=== PATIENT | female | born 1950 | race Caucasian/White ===

== ENCOUNTER 2018-08-13 18:44 | Emergency (ER) | payer OTHER ==
[~2018-08-13] VITALS: Ht 160 cm; Wt 81.7 kg
[~2018-08-13 18:44] MED LIST: ABILIFY15 MG PO; ANAPROX DS550 MG PO; CARAFATE 1 GM TA1 G1 PO; CLEOCIN HCL300 MG PO; DEMADEX20 MG PO; FEOSOL325 M1 PO; LEVOTHYROXIN0.025 MG PO; LIPITOR 20 MG T20 M1 PO; MIRALAX255 GM PO; NORCO 5-325 TA1 EACH PO; PROTONIX40 M1 PO; PROZAC 20 MG20 M1; PROZAC20 MG PO; SPIRONOLACTONE25 M1 PO
[2018-08-13] MEDS ORDERED: NORCO 5-325 TA1 EACH PO (20:34)
[2018-08-13 21:27] VITALS: BP 155/78
== END 2018-08-13 21:28 | disposition home or self-care (01) ==
LOC: M.ERS 18:44
DX: S42.212A Unspecified displaced fracture of surgical neck of left humerus, initial encounter for closed fracture (principal); S80.211A Abrasion, right knee, initial encounter; I10 Essential (primary) hypertension; E03.9 Hypothyroidism, unspecified; F32.9 Major depressive disorder, single episode, unspecified; Z96.641 Presence of right artificial hip joint; Z90.49 Acquired absence of other specified parts of digestive tract; Z88.8 Allergy status to other drugs, medicaments and biological substances; Z88.2 Allergy status to sulfonamides; W18.39XA Other fall on same level, initial encounter; Y92.89 Other specified places as the place of occurrence of the external cause; Y93.89 Activity, other specified; Y99.8 Other external cause status